=== PATIENT | male | born 1965 | race Hispanic/Latino ===

== ENCOUNTER 2019-08-29 11:09 | Emergency (ER) | payer OTHER, SELFPAY ==
[2019-08-29 11:23] VITALS: BP 139/87; PULSE 65; RESP 16; TEMP 36.4; O2SAT 99
--- NOTE | 2019-08-29 11:35 | ED.EYEPROB ---
HPI - Eye Problem General Chief complaint: Eye Problems Stated complaint: Something in right eye Time Seen by Provider: 08/29/19 11:24 Source: patient and RN notes reviewed Mode of arrival: ambulatory Limitations: no limitations History of Present Illness HPI Narrative: Patient presents today complaining of possible foreign body to the right eye x2 days. He believes it may be a piece of metal or sandpaper as he was grinding at home prior to sensation starting. He does report some blurred vision in the right eye as well as some photophobia. He has tried to flush with water without success. He currently rates his pain 3/10 and has taken no medication for pain prior to arrival. MD chief complaint: foreign body Related Data Home Medications Medication Instructions Recorded Confirmed pravastatin 80 mg PO DAILY 08/29/19 08/29/19 Allergies Allergy/AdvReac Type Severity Reaction Status Date / Time No Known Allergies Allergy Unverified 08/29/19 11:15 Review of Systems Review of Systems: Narrative: CONSTITUTIONAL: Denies body aches, fever, chills, or sweats. EYES: Right eye blurred vision, photophobia, foreign body sensation ENT: Denies rhinorrhea, congestion, sore throat, or otalgia. CARDIOVASCULAR: Denies chest pain, palpitations, or edema. RESPIRATORY: Denies cough or dyspnea. GASTROINTESTINAL: Denies abdominal pain, nausea, vomiting, or diarrhea. GENITOURINARY: Denies dysuria or hematuria. SKIN: Denies rash, itching, or wounds. MUSCULOSKELETAL: Denies back pain, joint pain, or myalgia. NEUROLOGIC: Denies headache, numbness, tingling, or weakness. PSYCH: Denies depression or anxiety. [facility] Past Medical History Medical History (Updated 08/29/19 @ 11:43 by Liz Ndiaye, [facility], ) Hypercholesterolemia Social History Social History Smoking status: Never smoker Alcohol intake: never Comments At time of signature, I have reviewed and agree with nursing past medical, surgical, social and family history unless otherwise noted. Please see nursing chart for further information. There is no relevant family history pertinent to the presenting complaint Exam Narrative: Exam Narrative: GENERAL: Well-appearing, well-nourished, and in no acute distress. HEAD: Normocephalic, atraumatic. EYES: EOMI. PERRL. Conjunctivae normal. Redness to right eye. Lids and lashes normal. +fluorescein uptake. See procedure note. ENT: Mucous membranes pink and moist. NECK: Normal AROM. CHEST: No respiratory distress. EXTREMITIES: Normal range of motion. No edema. SKIN: Warm, dry, no rash. Capillary refill normal. Normal skin turgor. NEURO: No focal deficits. Alert and oriented x3. Gait steady. PSYCH: Normal affect. No signs of depression or anxiety. Course Vital Signs Vital signs: Vital Signs Temperature 97.5 F L 08/29/19 11:23 Pulse Rate 65 08/29/19 11:23 Respiratory Rate 16 08/29/19 11:23 Blood Pressure 139/87 08/29/19 11:23 Pulse Oximetry 99 08/29/19 11:23 Temperature 97.5 F L 08/29/19 11:23 Pulse Rate 65 08/29/19 11:23 Respiratory Rate 16 08/29/19 11:23 Blood Pressure 139/87 08/29/19 11:23 Pulse Oximetry 99 08/29/19 11:23 Reviewed. Pt has been instructed to follow up with his PCP regarding his elevated blood pressure today. Procedures Other Procedure Procedure 1: Other Procedure: Right eye was anesthetized with 1 drop of tetracaine and anesthesia was achieved. The eye was flushed with eye wash. Lid was inverted and examined. Moistened Qtip was used to sweep underneath the upper eyelid with 0 foreign bodies resulting. Cornea was dyed with fluorescein and 1 punctate abrasions was noted. The uptake was so small that if there is a foreign body in the center, it is too small to be detected, even with magnification at [facility]. Pt tolerated procedure well. MDM - Eye Problem Differential Diagnosis Differential diagnosis: Likely corneal abrasion, conjunctivi
== END 2019-08-29 11:42 | disposition home or self-care (01) ==
PROVIDERS: Emergency Provider Nurse Practitioner
DX: S05.01XA Injury of conjunctiva and corneal abrasion without foreign body, right eye, initial encounter (principal); W22.8XXA Striking against or struck by other objects, initial encounter
CPT/HCPCS: 65205; 99213; A9270; G0463

== ENCOUNTER 2019-10-12 08:39 | Emergency (ER) | payer OTHER, SELFPAY ==
--- NOTE | ~2019-10-12 | XR_ITS ---
EXAMINATION: XR foot LT min 3V EXAM DATE: 10/12/2019 09:01 INDICATION: No known recent injury provided at this time. Pain of the left foot. Symptoms for one ye ar. TECHNIQUE: Left foot dorsoplantar, lateral and oblique projections obtained and reviewed. There is n o prior study for comparison. FINDINGS: Left metatarsal bones unremarkable, no evidence of stress fracture. There are no bony er osions identified. Joint spaces are uniform. There are no acute fractures or dislocations identified. There is no subcutaneous gas. The soft tissue is unremarkable. There are no radiopaque foreign b odies. IMPRESSION: 1. Unremarkable left foot exam. Reviewed, dictated and finalized at location B.
--- NOTE | 2019-10-12 08:51 | ED.GENADULT ---
HPI - General Adult General Chief complaint: Extremity Injury, Lower Stated complaint: left foot pain Time Seen by Provider: 10/12/19 08:51 Source: patient Mode of arrival: ambulatory Limitations: no limitations History of Present Illness HPI narrative: 54-year-old male patient presents to the [facility] with complaints of left heel and foot pain x1 year. Patient denies any injuries that he is aware of. Patient states that he has noticed he has had some flareups of swelling to the left heel and the medial aspect of the left foot at times. Denies wrapping it, denies elevating it, denies taking anything for the pain. Patient states he did see his doctor at one point in time for this and was prescribed an x-ray but never got the x-ray. Patient states he presents today because the pain is increasing. Related Data Allergies Allergy/AdvReac Type Severity Reaction Status Date / Time No Known Allergies Allergy Unverified 08/29/19 11:15 Review of Systems Review of Systems: Narrative: CONSTITUTIONAL: Denies fever, chills, or sweats. EYES: Denies visual changes, redness, or discharge. ENT: Denies rhinorrhea, congestion, sore throat, or otalgia. CARDIOVASCULAR: Denies chest pain, palpitations, or edema. RESPIRATORY: Denies cough or dyspnea. GASTROINTESTINAL: Denies abdominal pain, nausea, vomiting, or diarrhea. GENITOURINARY: Denies dysuria or hematuria. SKIN: Denies rash or itching. MUSCULOSKELETAL: Denies back pain, joint pain, or myalgia. Positive left foot pain NEUROLOGIC: Denies headache, numbness, or weakness. PSYCHIATRIC: Denies anxiety or depression. [facility] Past Medical History Medical History Hypercholesterolemia Social History Social History Smoking status: Never smoker Alcohol intake: never Comments At the time of my signature I agree with nursing past medical history, surgical, social, and family history. There is no relevant family history pertinent to the presenting complaint. Exam Narrative: Exam Narrative: GENERAL: Well-appearing, well-nourished, and in no acute distress. HEAD: Normocephalic, atraumatic. EYES: PERRLA and EOMI. ENT: Nares clear, no rhinorrhea or epistaxis. Mucous membranes moist. NECK: Supple. No lymphadenopathy CHEST: Clear to auscultation. No respiratory distress. HEART: Regular rate and rhythm. No murmur heard. Normal peripheral pulses. ABDOMEN: Soft, nontender, nondistended, normal active bowel sounds. EXTREMITIES: Patient able to bear weight and ambulate without pain. No surface trauma, ecchymosis, erythema, lesions, ulcers or break in skin integrity. The L foot is without obvious asymmetry or deformity when compared to the R foot. No bony step-off, nontender to palpation over the toes, midfoot or hindfoot or sole. Patient does have some slight swelling noted to the medial aspect of the heel on the left foot. Normal plantar/dorsiflexion, inversion/eversion. Distal motor and neurovascular status are intact. SKIN: Warm, dry, no rash. NEURO: No focal deficits. Alert and oriented x3. Course Reevaluation(s) Reevaluation #1: Reevaluated patient after x-ray had resulted. Discussed with him that the x-ray is negative for any acute fractures or heel spurs. Discussed with them that I would encourage patient to continue using Santiago wrap to help with swelling and pain as well as elevation, trying to rest and taking Tylenol and ibuprofen as needed for pain. Highly recommend inserts for his shoes. Patient is aware the plan of care. A copy of the x-ray report was provided to the patient and discussed with him that if he continues to have issues with swelling and pain in the feet he will need to see his primary doctor. Date: 10/12/19 Time: 09:18 Vital Signs Vital signs: Vital Signs Temperature 36.5 C 10/12/19 08:52 Pulse Rate 60 10/12/19 08:52 Respiratory Rate 16 10/12/19 08:52 Bloo
[2019-10-12 08:52] VITALS: BP 131/86; PULSE 60; RESP 16; TEMP 36.5; O2SAT 99
== END 2019-10-12 09:24 | disposition home or self-care (01) ==
PROVIDERS: Emergency Provider Nurse Practitioner Family; PCP Registered Nurse
DX: M79.672 Pain in left foot (principal); R22.42 Localized swelling, mass and lump, left lower limb; E78.00 Pure hypercholesterolemia, unspecified; G89.29 Other chronic pain
CPT/HCPCS: 73630; 99213; G0463

== ENCOUNTER 2020-09-12 12:42 | Emergency (ER) | payer OTHER, SELFPAY ==
--- NOTE | 2020-09-12 12:48 | ED.GENADULT ---
HPI - General Adult General Chief complaint: Eye Problems Stated complaint: Eye Pain Source: patient Mode of arrival: ambulatory Limitations: no limitations History of Present Illness HPI narrative: 55 y/o male. PMH includes: HLD. Presents to [facility] today with acute complaints of bilateral eye 'itching', lacrimation, and redness for the past 1 week. Client reports to have initially noticed his eye manifestations to have began after fishing. No visual pain, changes, or loss. He does not wear prescriptive lenses. No additional acute complaints of illness has been identified. Related Data Allergies Allergy/AdvReac Type Severity Reaction Status Date / Time No Known Allergies Allergy Unverified 08/29/19 11:15 Review of Systems Review of Systems: Narrative: CONSTITUTIONAL: Denies fever, chills, sweats. EYES: Denies visual changes. Positive redness, itching, and discharge. ENT: Denies rhinorrhea, congestion, sore throat, otalgia. CARDIOVASCULAR: Denies chest pain, palpitations, edema. RESPIRATORY: Denies dyspnea, wheezing, cough GASTROINTESTINAL: Denies abdominal pain, nausea, vomiting, diarrhea. GENITOURINARY: Denies dysuria, hematuria, abnormal discharge SKIN: Denies rash or itching. MUSCULOSKELETAL: Denies acute back pain, joint pain, or myalgia. NEUROLOGIC: Denies numbness, or focal weakness. PSYCHIATRIC: Denies anxiety or depression. All systems reviewed & are unremarkable except as noted in HPI and below PMFSH Past Medical History Medical History (Updated 09/12/20 @ 12:55 by BE Rosales) Hypercholesterolemia Social History Social History Smoking status: Never smoker Alcohol intake: never Exam Narrative: Exam Narrative: GENERAL: This is a well-nourished, well-developed patient, in no apparent distress. HEAD: normocephalic, atraumatic. EYES: With bilateral conjunctival erythema and lower lid crustation, RT > burdensome than LT. PERRL. EOM intact. No visual deficits. EARS: External ears normal, auditory canals clear and without drainage, TMs normal without perforation. Hearing grossly intact. NOSE: External nose normal with no obvious nasal discharge, nares without redness, no rhinorrhea. THROAT: Mucous membranes moist, posterior pharynx clear. NECK: Neck supple, non-tender without lymphadenopathy, masses or thyromegaly. CARDIOVASCULAR: Regular rate and rhythm without murmurs, gallops, or rubs. RESPIRATORY: Clear to auscultation. Breath sounds equal bilaterally. No wheezes, rales, or rhonchi. GASTROINTESTINAL: Abdomen soft, non-tender, nondistended. Bowel sounds are active. No hepato-splenomegaly, or palpable masses. No guarding. SKIN: warm, intact with no suspicious lesions or rash, good texture and turgor. NEURO: awake, alert, and oriented to person, place and time. There were no obvious focal neurologic abnormalities. Steady gait Course Vital Signs Vital signs: Vital Signs Temperature 36.5 C 09/12/20 12:56 Pulse Rate 73 09/12/20 12:56 Respiratory Rate 16 09/12/20 12:56 Blood Pressure 125/78 09/12/20 12:56 Pulse Oximetry 99 09/12/20 12:56 Temperature 36.5 C 09/12/20 12:56 Pulse Rate 73 09/12/20 12:56 Respiratory Rate 16 09/12/20 12:56 Blood Pressure 125/78 09/12/20 12:56 Pulse Oximetry 99 09/12/20 12:56 Medical Decision Making Differential Diagnosis Differential Diagnosis: Differential Diagnosis: Consideration of the following conditions may be warranted for the presenting problem, they are not final diagnoses: Adult Blepharitis, Allergic Conjunctivitis, Chemical Donis, Contact Lens Complications, Dry eyes, Epidemic Keratoconjunctivitis, Episcleritis, Acute Angle-Closure Glaucoma. Vital Signs Vital Signs: Vital Signs Temperature 36.5 C 09/12/20 12:56 Pulse Rate 73 09/12/20 12:56 Respiratory Rate 16 09/12/20 12:56 Blood Pressure 125/78 09/12/20 12:56 Pulse Oximetry 99 09/12/
[2020-09-12 12:56] VITALS: BP 125/78; PULSE 73; RESP 16; TEMP 36.5; O2SAT 99
== END 2020-09-12 13:03 | disposition home or self-care (01) ==
PROVIDERS: Emergency Provider Nurse Practitioner Adult Health
DX: H10.33 Unspecified acute conjunctivitis, bilateral (principal); E78.00 Pure hypercholesterolemia, unspecified
CPT/HCPCS: 99213; G0463

== ENCOUNTER 2020-12-07 10:41 | Emergency (ER) | payer OTHER, SELFPAY ==
[2020-12-07 10:57] VITALS: BP 133/94; PULSE 101; RESP 16; TEMP 38.4; O2SAT 98
--- NOTE | 2020-12-07 11:23 | ED.GENADULT ---
HPI - General Adult General Chief complaint: Upper Respiratory Infection Stated complaint: headache Source: patient Mode of arrival: ambulatory Limitations: no limitations History of Present Illness HPI narrative: Patient is a 55-year-old male who presents to the [facility] via POV for evaluation of Covid-like symptoms that have been present for approximately 3 days. Additionally, he reports generalized headache, subjective fever, dry cough, and rhinorrhea. Denies taking OTC meds for symptoms. Nothing improves or worsen symptoms. He is accompanied by his who is also here to be seen for similar symptoms. Denies known exposure to sick contacts. He is not vaccinated against Covid. Related Data Home Medications Medication Instructions Recorded Confirmed atorvastatin 80 mg PO DAILY 12/07/20 12/07/20 Allergies Allergy/AdvReac Type Severity Reaction Status Date / Time No Known Allergies Allergy Unverified 08/29/19 11:15 Review of Systems Review of Systems: Denies chills, sweats, change in appetite, recent weight loss, LOC, dizziness, sinus problems, sneezing, ear problems, sore throat, swollen lymph nodes, wheezing, cyanosis, shortness of breath, abdominal pain, nausea, vomiting, diarrhea, chest pain, and heart palpitations PMFSH Past Medical History Medical History (Updated 12/07/20 @ 11:53 by TWILA Soliman, ) Hypercholesterolemia Hyperlipidemia Social History Social History Smoking status: Never smoker Alcohol intake: never Gender identity (if verbalized by the patient): Male Comments I have reviewed and agree with the patient's past medical, surgical, social, and family hx as documented by the RN. There is no relevant family history pertinent to the presenting complaint. Exam Narrative: GENERAL: Well-appearing, well-nourished, and in no acute distress. HEAD: Normocephalic, atraumatic. No sinus tenderness or facial swelling appreciated. EYES: PERRLA and EOMI. No evidence of erythema, swelling, or drainage. ENT: Bilateral external ears and ear canals normal. Bilateral TMs are normal.No TM perforation. Nares clear, no rhinorrhea or epistaxis. Bilateral turbinates without erythema/ swelling. Mucous membranes moist and pink. Uvula is midline without erythema and swelling. No evidence of petechial rash, cobblestoning, lesions, ulcers, erythema, swelling, exudates, peritonsillar abscess, tenting, or drooling. Breath odor and voice normal. NECK: Supple. No Lymphadenopathy or nuchal rigidity appreciated. CHEST: Bilateral lung telles are clear to auscultation. No respiratory distress. NO pleuritic cp upon examination. Mild dry cough appreciated on examination. HEART: Regular rate and rhythm. No murmur, gallop, or rub heard. EXTREMITIES: Normal range of motion. No edema. SKIN: Warm, dry, no rash. NEURO: No focal deficits. Alert and oriented x3. Course Vital Signs Vital signs: Vital Signs Temperature 101.1 F H 12/07/20 10:57 Pulse Rate 101 H 12/07/20 10:57 Respiratory Rate 16 12/07/20 10:57 Blood Pressure 133/94 H 12/07/20 10:57 Pulse Oximetry 98 12/07/20 10:57 Temperature 101.1 F H 12/07/20 10:57 Pulse Rate 101 H 12/07/20 10:57 Respiratory Rate 16 12/07/20 10:57 Blood Pressure 133/94 H 12/07/20 10:57 Pulse Oximetry 98 12/07/20 10:57 Medical Decision Making Differential Diagnosis Differential Diagnosis: Allergic rhinitis, ABRS, acute viral sinusitis, strep pharyngitis, nasopharyngitis, bronchitis, pneumonia, AOM, otitis externa, viral URI, influenza, COVID-19 Medical Records Medical records reviewed: Yes I reviewed the external patient's medical records. Vital Signs Vital Signs: Vital Signs Temperature 101.1 F H 12/07/20 10:57 Pulse Rate 101 H 12/07/20 10:57 Respiratory Rate 16 12/07/20 10:57 Blood Pressure 133/94 H 12/07/20 10:57 Pulse Oximetry 98 12/07/20 10:57
== END 2020-12-07 11:50 | disposition home or self-care (01) ==
PROVIDERS: Emergency Provider Nurse Practitioner Family; PCP Registered Nurse
DX: U07.1 COVID-19 (principal); E78.00 Pure hypercholesterolemia, unspecified; E78.5 Hyperlipidemia, unspecified
CPT/HCPCS: 87426; 99213; C9803; G0463

== ENCOUNTER 2021-12-03 19:32 | Emergency (ER) | payer OTHER, SELFPAY ==
[2021-12-03 19:42] VITALS: BP 122/79; PULSE 97; RESP 16; TEMP 37.8; O2SAT 99
--- NOTE | 2021-12-03 20:39 | ED.EAR ---
HPI - Ear Problem General Chief complaint: Ear Stated complaint: Ear Pain Time Seen by Provider: 12/03/21 20:39 Source: patient Mode of arrival: ambulatory Limitations: no limitations History of Present Illness HPI Narrative: 56-year-old male presents with complaint of left ear pain since yesterday. Today he reports that he has sore throat, nasal congestion, headache, fatigue and felt like he had a fever this morning. He continues to have left ear pain. He is refusing a COVID test. States he wants to focus on left ear pain. All systems reviewed and negative except as noted above. Related Data Home Medications Medication Instructions Recorded Confirmed atorvastatin 80 mg tablet 80 mg PO DAILY 12/07/20 12/03/21 Allergies Allergy/AdvReac Type Severity Reaction Status Date / Time No Known Allergies Allergy Verified 12/03/21 20:12 Review of Systems Review of Systems: CONSTITUTIONAL: Reports fever, chills, or sweats. EYES: Denies visual changes, redness, or discharge. ENT: Reports rhinorrhea, congestion, sore throat and left ear pain CARDIOVASCULAR: Denies chest pain, palpitations, or edema. RESPIRATORY: Denies cough or dyspnea. GASTROINTESTINAL: Denies abdominal pain, nausea, vomiting, or diarrhea. GENITOURINARY: Denies dysuria or hematuria. SKIN: Denies rash or itching. MUSCULOSKELETAL: Denies back pain, joint pain, or myalgia. NEUROLOGIC: Denies headache, numbness, or weakness. PSYCHIATRIC: Denies anxiety or depression. All other systems reviewed are negative, except as documented in HPI. [facility] Past Medical History Medical History (Updated 12/03/21 @ 20:45 by Nisa Wiseman NP) Hypercholesterolemia Hyperlipidemia Social History Social History Smoking status: Never smoker Alcohol intake: never Gender identity (if verbalized by the patient): Male Comments At time of signature, agree with nursing past medical, surgical, social and family history. There is no relevant family history pertinent to the presenting complaint. Exam Narrative: GENERAL: This is a well-nourished, well-developed patient, in no apparent distress. HEAD: normocephalic, atraumatic. EYES: PERRL. Sclera clear/white. Vision is grossly intact. EARS: External ears normal, auditory canals clear and without drainage, left TM is erythematous and retracted. Right TM is normal. NOSE: External nose normal with clear nasal drainage, mild congestion, erythema to both nares. THROAT: Mucous membranes moist, mild erythema to posterior pharynx. NECK: Neck supple, non-tender without lymphadenopathy, masses or thyromegaly. CARDIOVASCULAR: Regular rate and rhythm without murmurs, gallops, or rubs. RESPIRATORY: Clear to auscultation. Breath sounds equal bilaterally. No wheezes, rales, or rhonchi. SKIN: warm, Dry, intact with no suspicious lesions or rash, good texture and turgor. NEURO: awake, alert, and oriented to person, place and time. There were no obvious focal neurologic abnormalities. EXTREMITIES: No joint tenderness, effusion, or edema noted. Course Course Level of Care: Express Care Visit Vital Signs Vital signs: Vital Signs Temperature 37.8 C H 12/03/21 19:42 Pulse Rate 97 12/03/21 19:42 Respiratory Rate 16 12/03/21 19:42 Blood Pressure 122/79 12/03/21 19:42 Pulse Oximetry 99 12/03/21 19:42 Oxygen Delivery Room Air 12/03/21 19:42 Temperature 37.8 C H 12/03/21 19:42 Pulse Rate 97 12/03/21 19:42 Respiratory Rate 16 12/03/21 19:42 Blood Pressure 122/79 12/03/21 19:42 Pulse Oximetry 99 12/03/21 19:42 Oxygen Delivery Room Air 12/03/21 19:42 Reviewed Medical Decision Making MDM Narrative Medical decision making narrative: Patient is aware of diagnosis, understands and agrees to treatment plan. Anticipatory guidance given. Patient agrees to follow-up as directed and is aware of reasons to seek care at the emergency departme
== END 2021-12-03 20:50 | disposition home or self-care (01) ==
PROVIDERS: Emergency Provider Nurse Practitioner Family; PCP Registered Nurse
DX: H66.92 Otitis media, unspecified, left ear (principal); R09.82 Postnasal drip; E78.00 Pure hypercholesterolemia, unspecified; E78.5 Hyperlipidemia, unspecified
CPT/HCPCS: 99213; G0463

== ENCOUNTER 2022-01-27 17:57 | Emergency (ER) | payer OTHER, SELFPAY ==
[2022-01-27] VITALS (20 sets, daily range): BP systolic 137–151; BP diastolic 75–98; PULSE 58–78; RESP 14–26; O2SAT 92–99
--- NOTE | ~2022-01-27 | XR_ITS ---
EXAMINATION: XR chest 2V Exam Date/Time: 01/27/2022 18:40 CDT HISTORY: L SIDED CP RADIATES TO BACK X 3 DAYS, HIGH CHOLESTEROL Comparison: None available. RESULT: Lines, tubes, and devices: None. Lungs and pleura: Low volumes with crowding. Streaky opacities in the lung bases likely representing atelectasis. Cardiomediastinal silhouette: Stable. Other: No acute osseous or upper abdominal finding. H shaped vertebral bodies as can be seen with sickle cell anemia. Mild anterior wedge deformity of vertebral bodies at the thoracolumbar junction, likely physiologic. IMPRESSION: No acute cardiopulmonary process. Reviewed, dictated and finalized at location K.
--- NOTE | 2022-01-27 18:26 | ECG_ITS ---
Measurements Intervals [place] Rate: 63 P: 49 [place]: 226 QRS: -5 QRSD: 97 T: 15 QT: 368 QTc: 379 Interpretive Statements SINUS RHYTHM WITH FIRST DEGREE AV BLOCK NO PREVIOUS ECG AVAILABLE FOR COMPARISON Electronically Signed On 01-28-2022 11:34:50 CDT by Mark Clark M.D.
[2022-01-27 18:33] LABS: Basophils Percent Auto 0.4 % (0.2-1.2); Eosinophils Absolute Auto 0.2 K/mm3 (0-0.3); Eosinophils Percent Auto 2.3 % (0-4.4); Hematocrit 45.3 % (42.0-52.0); Hemoglobin 15.4 g/dL (14.0-18.0); Immature Granulocyte Absolute 0.02 K/mm3 (0.00-0.031); Immature Granulocyte Percent A 0.3 % (0-0.5); Lymphocytes Absolute Auto 3.16 K/mm3 (0.9-3.2); Lymphocytes Percent Auto 45.8 % (18.3-44.2); Mean Corpuscular Hemoglobin 30.5 pg (26-34); Mean Corpuscular Volume 89.7 fl (80-100); Mean Platelet Volume 10.8 fl (7.4-10.4); Monocytes Absolute Auto 0.6 K/mm3 (0.1-0.6); Monocytes Percent Auto 8.1 % (2.6-8.5); Neutrophils Percent Auto 43.1 % (45.5-73.1); Platelet Count Result 201 k/mm3 (150-375); Red Blood Count 5.05 M/mm3 (4.6-6.20); Red Cell Distribution Width 14.2 % (11.5-14.5); White Blood Count 6.9 K/mm3 (4.5-10.0)
[2022-01-27 18:43] LABS: Prothrombin Time 12.7 Seconds (11.1-14.7)
[2022-01-27 18:44] LABS: Alanine Aminotransferase 39 U/L (6-50); Albumin Level 4.1 g/dL (3.5-5.1); Alkaline Phosphatase 124 U/L (38-126); Anion Gap 11 mmol/L (8-16); Aspartate Amino Transferase 38 U/L (17-59); Bilirubin,Total 0.4 mg/dL (0.2-1.3); Blood Urea Nitrogen 14 mg/dL (9-20); Carbon Dioxide 27 mmol/L (22-30); Chloride 103 mmol/L (98-107); Estimated CRCL calculation 97 ml/min; Estimated Glomerular Filt Rate > 60; Glucose 91 mg/dL (65-110); Lipase 96 U/L (23-300); Partial Thromboplastin Time 28.7 SECONDS (22.3-36.8); Potassium 3.6 mmol/L (3.4-5.0); Sodium 141 mmol/L (137-145)
[2022-01-27 18:55] LABS: Troponin I < 0.012 ng/mL (0.000-0.034)
--- NOTE | 2022-01-27 19:13 | PC.NURSE ---
Report received from LUIZA Garrison. Assumed care of patient at this time.
--- NOTE | 2022-01-27 19:26 | ED.CHESTPAIN ---
HPI - Chest Pain General Chief Complaint: Chest Pain Stated Complaint: chest pain x 3 days Time Seen by Provider: 01/27/22 18:01 Source: patient and RN notes reviewed Mode of arrival: ambulatory Limitations: language barrier (bengali speaking) History of Present Illness HPI narrative: This is a 56 year old male who presents for evaluation of left chest pain. Patient reports intermittent left chest pain. He noticed pain to left lateral chest 3 nights ago. He denies his pain has cramping and nonradiating. He woke up the next morning without any pain. He states tonight he felt this pain when he was working with his bow and arrow. His pain seems worse with movement. He reports intermittent dry cough for 2 weeks. Denies sob, nausea, vomiting, fever, chills, abdominal pain, leg swelling . He has not taken any medication for his pain. His pain is rated 2/10. Related Data Home Medications Medication Instructions Recorded Confirmed atorvastatin 80 mg tablet 80 mg PO DAILY 01/27/22 Allergies Allergy/AdvReac Type Severity Reaction Status Date / Time No Known Allergies Allergy Verified 01/27/22 18:14 Review of Systems Review of Systems: All systems reviewed & are unremarkable except as noted in HPI and below Constitutional: Constitutional: Denies chills, Denies fatigue and Denies fever(s) ENT: Denies nasal congestion Cardiovascular: Cardiovascular: Reports chest pain, Denies rapid heart rate, Denies radiating jaw, neck or arm pain and Denies slow heart rate Respiratory: Respiratory: Denies chest congestion, Denies cough and Denies dyspnea Gastrointestinal: Gastrointestinal: Denies abdominal pain, Denies nausea and Denies vomiting PMFSH Past Medical History Medical History (Updated 01/27/22 @ 22:00 by Elvia Carreno MD) Hypercholesterolemia Hyperlipidemia Social History Social History Smoking status: Never smoker Alcohol intake: never Gender identity (if verbalized by the patient): Male Exam Const: General: healthy appearing and alert Nutritional Appearance: well nourished Orientation/consciousness: patient oriented x3 Limitations: no limitations HENMT: Head: normal to inspection Eyes: EOM: EOMs intact bilaterally Neck: Neck: normal visual inspection Chest: Chest palpation & inspection: normal inspection of the chest Resp: Effort & Inspection: normal respiratory effort Auscultation: clear to auscultation bilaterally Cardio: Rate: regular rate Rhythm: regular rhythm Heart sounds: no murmurs GI: GI Palp: Yes Soft to palpation, No Tenderness to palpation present (GI) and No Guarding due to palpation present (GI) Auscultation: normal bowel sounds Back/Spine/Pelvis: Back: no CVA tenderness Skin: General skin exam: normal color Rashes: no rashes Wounds: no wounds Neuro: General: patient oriented x3, moves all extremities and CN's II-XI intact bilaterally Cranial nerves: Yes Nystagmus not present Extrem: General: normal to inspection Psych: Mental Status: mental status grossly normal Affect: normal affect Attitude: cooperative Course Reevaluation(s) Reevaluation #1: Patient states he does not have chest pain. He also states now he thinks it may be due to Zetia that he is taking. Pain is atypical and non exertional so he will be discharged for outpatient follow up . Date: 01/27/22 Time: 21:58 Vital Signs Vital signs: Vital Signs Pulse Rate 64 01/27/22 18:08 Respiratory Rate 16 01/27/22 18:08 Blood Pressure 151/80 H 01/27/22 18:08 Pulse Oximetry 98 01/27/22 18:08 Oxygen Delivery Room Air 01/27/22 18:08 Pulse Rate 76 01/27/22 21:46 Respiratory Rate 26 H 01/27/22 21:46 Blood Pressure 144/98 H 01/27/22 21:01 Pulse Oximetry 97 01/27/22 21:46 Oxygen Delivery Room Air 01/27/22 18:08 MDM - Chest Pain Lab Data Attestation: I reviewed the patient's lab results. Result d
[2022-01-27 21:47] LABS: Troponin I < 0.012 ng/mL (0.000-0.034)
== END 2022-01-27 22:25 | disposition home or self-care (01) ==
PROVIDERS: Emergency Provider General Practice; PCP Registered Nurse
DX: R07.89 Other chest pain (principal); E78.5 Hyperlipidemia, unspecified; I44.0 Atrioventricular block, first degree
CPT/HCPCS: 36415; 71046; 80053; 83690; 84484; 85025; 85610; 85730; 93005; 99284

== ENCOUNTER 2023-03-24 14:27 | Outpatient (CLI) | payer OTHER, SELFPAY ==
--- NOTE | 2023-03-24 | ECG_ITS ---
Measurements Intervals [place] Rate: 65 P: 55 ND: 207 QRS: 4 QRSD: 98 T: 17 QT: 380 QTc: 397 Interpretive Statements SINUS RHYTHM ABNORMAL ELECTROCARDIOGRAM COMPARED TO ECG 01/27/2022 18:10:23 NO SIGNIFICANT CHANGES Electronically Signed On 03-24-2023 15:30:54 SUPERVISOR DRYING by Anthony Taylor M.D.
--- NOTE | ~2023-03-24 | XR_ITS ---
EXAMINATION: XR chest 2V 03/24/2023 14:49 INDICATION: Atypical chest pain PROCEDURE: 2 view chest COMPARISON: 01/27/2022 FINDINGS: The lungs are clear. The cardiomediastinal silhouette is within normal limits. There are no pleural effusions. There is no pneumothorax suspected. IMPRESSION: 1: NO ACUTE CARDIOPULMONARY DISEASE. Reviewed, dictated and finalized at location B. ELLA FRAME MAKER
== END 2023-03-24 14:28 | disposition home or self-care (01) ==
PROVIDERS: PCP Registered Nurse; Visit Provider Registered Nurse
DX: R07.89 Other chest pain (principal); R94.31 Abnormal electrocardiogram [ECG] [EKG]
CPT/HCPCS: 71046; 93005

== ENCOUNTER 2023-05-31 11:52 | Emergency (ER) | payer OTHER, SELFPAY ==
--- NOTE | ~2023-05-31 | CT_ITS ---
CT of the Abdomen and Pelvis: Indication: Abdominal pain Technique: 2.5 mm axial scans were obtained through the abdomen and pelvis following intravenous adm inistration of 100 cc of Omnipaque 350. Dose reduction technique was used on this scan by utilizing a utomated exposure control and iterative reconstruction technique. The dose-length product (DLP) was 9 27.41 mGy-cm. Findings: Scans through the lung bases are unremarkable. There is diffuse fatty infiltration of the liver. The spleen, pancreas, gallbladder, adrenals and kid neys are within normal limits. No evidence of aortic aneurysm. No lymphadenopathy. No bowel obstruction or bowel wall thickening. There is no evidence to suggest acute appendicitis. Images through the pelvis were performed. Urinary bladder unremarkable. No pelvic mass seen. No ascit es. Bilateral fat-containing inguinal hernias noted. Impression: No acute abnormalities seen. Diffuse fatty infiltration of liver. Bilateral fat-containing inguinal hernias. Reviewed, dictated and finalized at [facility]. H MOVER Impression: No acute abnormalities seen. Diffuse fatty infiltration of liver. Bilateral fat-containing inguinal hernias.
[2023-05-31 11:59] VITALS: BP 126/74; PULSE 90; RESP 16; TEMP 36.6; O2SAT 100
[2023-05-31 13:14] VITALS: BP 131/88; PULSE 77; RESP 20; O2SAT 96
--- NOTE | 2023-05-31 13:23 | ECG_ITS ---
Measurements Intervals [place] Rate: 67 P: 48 WA: 220 QRS: 3 QRSD: 101 T: 34 QT: 374 QTc: 397 Interpretive Statements SINUS RHYTHM WITH FIRST DEGREE AV BLOCK ABNORMAL ECG COMPARED TO ECG 03/24/2023 14:58:24 FIRST DEGREE AV BLOCK NOW PRESENT Electronically Signed On 06-01-2023 8:16:14 BUTANE COMPRESSOR OPERATOR by Omar Lucero M.D.
[2023-05-31] MEDS: FAMOTIDINE 20 MG/2 ML VIAL IV PUSH (13:36)
[2023-05-31] MEDS: SODIUM CHLORIDE 0.9% IV 1,000 ML 999 ML IV CONT (13:36)
[2023-05-31 13:39] LABS: Basophils Percent Auto 0.5 % (0.2-1.2); Eosinophils Absolute Auto 0.1 K/mm3 (0-0.3); Hematocrit 46.2 % (42.0-52.0); Hemoglobin 15.4 g/dL (14.0-18.0); Immature Granulocyte Absolute 0.02 K/mm3 (0.00-0.031); Immature Granulocyte Percent A 0.3 % (0-0.5); Lymphocytes Absolute Auto 2.64 K/mm3 (0.9-3.2); Lymphocytes Percent Auto 40.3 % (18.3-44.2); Mean Corpuscular HGB Conc 33.3 g/dl (32-36); Mean Corpuscular Hemoglobin 30.4 pg (26-34); Mean Corpuscular Volume 91.3 fl (80-100); Mean Platelet Volume 10.4 fl (7.4-10.4); Monocytes Absolute Auto 0.5 K/mm3 (0.1-0.6); Monocytes Percent Auto 7.3 % (2.6-8.5); Neutrophils Absolute Auto 3.3 K/mm3 (1.3-6.7); Neutrophils Percent Auto 49.6 % (45.5-73.1); Platelet Count Result 229 k/mm3 (150-375); Red Blood Count 5.06 M/mm3 (4.6-6.20); Red Cell Distribution Width 13.9 % (11.5-14.5); White Blood Count 6.6 K/mm3 (4.5-10.0)
[2023-05-31 13:51] LABS: Lactic Acid Reflex 1.4 mmol/L (0.7-2.0)
[2023-05-31 13:53] LABS: Prothrombin Time 13.4 Seconds (11.1-14.7)
[2023-05-31 13:54] LABS: Alanine Aminotransferase 43 U/L (6-50); Alkaline Phosphatase 108 U/L (38-126); Anion Gap 6 mmol/L (8-16); Aspartate Amino Transferase 48 U/L (17-59); Bilirubin,Total 0.7 mg/dL (0.2-1.3); Blood Urea Nitrogen 14 mg/dL (9-20); CRP < 0.5 mg/dL (<1.0); Calcium 9.1 mg/dL (8.4-10.2); Carbon Dioxide 25 mmol/L (22-30); Chloride 108 mmol/L (98-107); Estimated CRCL calculation 117 ml/min; Estimated Glomerular Filt Rate > 60; Glucose 156 mg/dL (65-110); Lipase 163 U/L (23-300); Potassium 4.1 mmol/L (3.4-5.0); Sodium 139 mmol/L (137-145)
--- NOTE | 2023-05-31 13:58 | ED.ABDPAIN ---
HPI - Abdominal Pain General Chief Complaint: Abdominal Pain Stated Complaint: abd pain Time Seen by Provider: 05/31/23 13:18 Source: patient Limitations: no limitations History of Present Illness HPI narrative: Patient is a 58-year-old male presents to the emergency department accompanied by family for abdominal pain. Patient states that in his lower abdomen diffusely he has a sensation of hot lack of fever and is uncomfortable and is experiencing this for the past 3 days it has been coming and going, no history this in the past, has not tried anything for the pain has not noticed anything making the pain better or worse, denies radiation of the discomfort. Patient also admits to associated discomfort when he has a bowel movement and feels like he can not feel something stopping his typical use of having a bowel movement the patient denies any melena or hematochezia. Patient denies history of Gastroenterology evaluation. Patient denies recent injuries, recent illness, chest pain, difficulty breathing, rash, fever, cough, nausea, vomiting, urinary discomfort, history kidney stones, urinary frequency, urinary urgency, hematuria, numbness, weakness. Related Data Home Medications Medication Instructions Recorded Confirmed atorvastatin 80 mg tablet 80 mg PO DAILY 01/27/22 Allergies Allergy/AdvReac Type Severity Reaction Status Date / Time No Known Allergies Allergy Verified 05/31/23 13:16 Review of Systems Review of Systems: A 10 system review of systems was completed on the patient and is negative except for what is stated in the HPI. Nursing and ancillary documentation was reviewed. [facility] Past Medical History Medical History (Updated 05/31/23 @ 17:13 by Casper Howe DO) Hypercholesterolemia Hyperlipidemia Social History Social History Smoking status: Never smoker Alcohol intake: never Gender identity (if verbalized by the patient): Male Comments At time of signature, I have reviewed and agree with nursing past medical, surgical, social and family history unless otherwise noted. Please see the nursing chart for further information. There is no relevant family history pertinent to the presenting complaint. Exam Narrative: CONST: No acute distress. Well nourished. HENMT: Head is normocephalic and atraumatic. Moist mucous membranes. No posterior oropharynx erythema. EYES: No conjunctival icterus, injection, or pallor. PERRL. NECK: No meningeal signs. RESP: Able to speak in full sentences. Normal respiratory effort. CTAB. CARDIO: Regular rate. Regular rhythm. 2+ DP and radial pulses bilaterally. GI: Nondistended. No tenderness to palpation. Soft. Negative Pool sign. No McBurney's point tenderness to palpation. No palpable masses or hernias. : No CVA tenderness to palpation. external examination of the anus reveals no fissures or hemorrhoids, anal tone is normal in digital rectal examination, no gross blood, no palpable masses or internal hemorrhoids, stool Hemoccult is negative. No testicular pain or swelling. SKIN: No rashes or lesions noted on exposed skin. NEURO: Oriented x3. Moves all extremities. EXTREM/MSK/BACK: No pedal edema. PSYCH: Normal affect. Procedures Stool Hemoccult Stool hemoccult #1: Stool Hemoccult Date: 05/31/23 Stool Hemoccult Time: 14:48 Procedural Steps Taken: stool placed in appropriate test area, developer placed on stool and control areas and controls appropriately positive and negative Hemoccult result: negative Course Vital Signs Vital signs: Vital Signs Temperature 97.9 F 05/31/23 11:59 Pulse Rate 90 05/31/23 11:59 Respiratory Rate 16 05/31/23 11:59 Blood Pressure 126/74 05/31/23 11:59 Pulse Oximetry 100 05/31/23 11:59 Oxygen Delivery Room Air 05/31/23 11:59 Temperature 97.9 F 05/31/23 11:59 Pulse Rate 73 05/31/23 14:4
[2023-05-31 14:01] LABS: Troponin I < 0.012 ng/mL (0.000-0.034)
[2023-05-31 14:19] LABS: Influenza A QL RT-PCR Negative (Negative); Influenza B QL RT-PCR Negative (Negative); RSV RNA, RT-PCR Negative (Negative); SARS-CoV-2 RNA PCR Negative (Negative)
[2023-05-31 14:21] LABS: Appearance Urine Clear (Clear); Bilirubin Urine Negative (Negative); Blood Urine Negative (Negative); Color Urine Yellow (Yellow); Glucose Urine UA Negative (Negative); Ketones Urine Negative (Negative); Leukocyte Esterase Ur Negative LEU/UL (Negative); Nitrate Urine Negative (Negative); Protein Urine Negative (Negative); Specific Grav Ur 1.024 (1.001-1.035)
[2023-05-31 14:25] LABS: Add Urine Microscopic? NO
[2023-05-31 14:41] VITALS: PULSE 73; RESP 19; O2SAT 99
[2023-05-31] MEDS: ACETAMINOPHEN 500 MG TABLET 1000 MG PO (14:57)
[2023-05-31 17:23] VITALS: BP 148/87; PULSE 60; RESP 20; TEMP 36.6; O2SAT 99
== END 2023-05-31 17:25 | disposition home or self-care (01) ==
PROVIDERS: Emergency Provider Student in an Organized Health Care Education/Training Program; PCP Registered Nurse
DX: R10.30 Lower abdominal pain, unspecified (principal); E78.5 Hyperlipidemia, unspecified; Z20.822 Contact with and (suspected) exposure to COVID-19
CPT/HCPCS: 36415; 74177; 80053; 81003; 83605; 83690; 83735; 84484; 85025; 85610; 85730; 86140; 87637; 93005; 96361; 96374; 99284; A9270; J7030; Q9967

== ENCOUNTER 2023-10-30 11:24 | Emergency (ER) | payer OTHER, SELFPAY ==
--- NOTE | ~2023-10-30 | XR_ITS ---
PA, oblique, and lateral views of the left third finger CLINICAL HISTORY: Crush injury FINDINGS: No acute fracture or dislocation seen. Joint spaces are intact. Soft tissues are unremarkab le. IMPRESSION: Unremarkable exam. Reviewed, dictated and finalized at location M. IMPRESSION: Unremarkable exam.
[2023-10-30 11:25] VITALS: BP 138/86; PULSE 77; RESP 16; TEMP 36.6; O2SAT 97
--- NOTE | 2023-10-30 12:26 | ED.UPPEXIN ---
HPI - Extremity Injury (Upper) General Chief Complaint: Extremity Injury, Upper Stated Complaint: finger injury Time Seen by Provider: 10/30/23 11:26 History of Present Illness HPI narrative: 58-year-old male presents emergency room for evaluation of left middle finger injury. Patient states that he crushed his finger in a car door his prior to arrival. States noticed lacerations to either side of his finger. Related Data Home Medications Medication Instructions Recorded Confirmed atorvastatin 80 mg tablet 80 mg PO DAILY 01/27/22 Allergies Allergy/AdvReac Type Severity Reaction Status Date / Time No Known Allergies Allergy Verified 10/30/23 11:27 Review of Systems Review of Systems: ROS unremarkable except for noted in HPI PMFSH Past Medical History Medical History Hypercholesterolemia Hyperlipidemia Social History Social History Smoking status: Never smoker Alcohol intake: never Gender identity (if verbalized by the patient): Male Exam Narrative: GENERAL: Well-appearing, well-nourished, no physical limitations, and in no acute distress. HEAD: Normocephalic, atraumatic. EYES: Conjunctivae normal, PERRLA and EOMI. CHEST: Clear to auscultation. No respiratory distress. No wheezes rales or rhonchi. HEART: Regular rate and rhythm. No murmur heard. Normal peripheral pulses. EXTREMITIES: Left middle finger: 3.5 cm linear laceration to medial side, 0.5 cm laceration to lateral side SKIN: Warm, dry, no rash. No noted wounds NEURO: No focal deficits. Alert and oriented x3. MAEW. CN's II-XI intact bilaterally, normal gait PSYCH: Cooperative. Normal mood and affect. Course Vital Signs Vital signs: Vital Signs Temperature 36.6 C 10/30/23 11:25 Pulse Rate 77 10/30/23 11:25 Respiratory Rate 16 10/30/23 11:25 Blood Pressure 138/86 10/30/23 11:25 Pulse Oximetry 97 10/30/23 11:25 Oxygen Delivery Room Air 10/30/23 11:25 Temperature 36.6 C 10/30/23 11:25 Pulse Rate 64 10/30/23 12:53 Respiratory Rate 16 10/30/23 12:53 Blood Pressure 138/86 07/11/24 11:25 Pulse Oximetry 95 10/30/23 12:53 Oxygen Delivery Room Air 10/30/23 11:25 Procedures Laceration Laceration 1: Date: 10/30/23 Time: 13:32 Site: hand Side (If applicable): left Size (cm): 3.5 Description: linear Depth: simple, single layer Local Anesthetic: lidocaine 1% Amount of anesthesia used (mL): 7 Pre-repair: irrigated ====== Skin Level ====== Skin layer closed with: nylon Size (cm): 5-0 Number of sutures: 7 Technique: simple, interrupted ====== Subcutaneous Layer ====== ====== Muscle Layer ====== ====== Tendon Layer ====== Discharge Plan Discharge Clinical Impression: Finger laceration Patient Disposition: Home, Self-Care Condition: Stable Instructions: Antibiotic Form, Care For Your Stitches (ED), Laceration (ED) Additional Instructions: Keep your wound clean and dry. Do not use as purple alcohol or hydrogen peroxide. Keep wound clean with soap and water. Stitches come out in 10 days. Monitor for signs of infection which include redness, swelling, tenderness and purulent discharge. Prescriptions: No Action atorvastatin 80 mg Tablet 80 mg PO DAILY acetaminophen 500 mg tablet 500 mg PO Q6H PRN (Reason: pain) Qty: 30 0RF Follow-up/Referrals: Brie,KARTHIK Garcia [Primary Care Provider] - Time of Disposition: 13:33
[2023-10-30] MEDS: HYDROmorphone HCL INJ (*CRX) 1 MG/ML SYR IV PUSH (12:51)
[2023-10-30 12:53] VITALS: PULSE 64; RESP 16; O2SAT 95
[2023-10-30] MEDS: TETANUS,DIPHTHERIA,AC PERTUSSIS ADULT (0.5 ML) BOOSTRIX IM (14:01)
[2023-10-30 14:16] VITALS: BP 126/77; PULSE 57; RESP 16; O2SAT 93
== END 2023-10-30 14:18 | disposition home or self-care (01) ==
PROVIDERS: Emergency Provider Nurse Practitioner Family; PCP Registered Nurse
DX: S61.213A Laceration without foreign body of left middle finger without damage to nail, initial encounter (principal); Z23 Encounter for immunization; E78.00 Pure hypercholesterolemia, unspecified; W23.0XXA Caught, crushed, jammed, or pinched between moving objects, initial encounter
CPT/HCPCS: 12002; 73140; 90471; 90715; 96374; 99284; J1170

== ENCOUNTER 2023-11-19 10:45 | Emergency (ER) | payer OTHER, SELFPAY ==
[2023-11-19 10:59] VITALS: BP 113/69; PULSE 78; RESP 16; TEMP 36.6; O2SAT 98
--- NOTE | 2023-11-19 11:31 | ED.GENADULT ---
HPI - General Adult General Chief complaint: Eye Problems Stated complaint: right eye swollen, red Source: patient Mode of arrival: ambulatory Limitations: no limitations History of Present Illness HPI narrative: Patient presents for evaluation of right upper eyelid swelling and redness for the last 3 days. He denies any pain, pruritus, fever, chills, nausea, vomiting. No visual disturbance. He has not tried any therapies to assist with the symptoms. He does not wear glasses contacts. Related Data Home Medications Medication Instructions Recorded Confirmed atorvastatin 80 mg tablet 80 mg PO DAILY 01/27/22 11/19/23 fluticasone propionate 50 See Rx Instructions .Route .COMPLEX 11/19/23 11/19/23 mcg/actuation nasal spray,suspension loratadine 10 mg tablet 10 mg PO DAILY 11/19/23 11/19/23 Allergies Allergy/AdvReac Type Severity Reaction Status Date / Time No Known Allergies Allergy Verified 11/19/23 10:48 Review of Systems Review of Systems: CONSTITUTIONAL: Denies fever, chills, or sweats. EYES: Denies visual changes, redness, or discharge. ENT: Denies rhinorrhea, congestion, sore throat, or otalgia. CARDIOVASCULAR: Denies chest pain, palpitations, or edema. RESPIRATORY: Denies cough or dyspnea. GASTROINTESTINAL: Denies abdominal pain, nausea, vomiting, or diarrhea. GENITOURINARY: Denies dysuria or hematuria. SKIN: Reports swelling and redness to the right upper eyelid MUSCULOSKELETAL: Denies back pain, joint pain, or myalgia. NEUROLOGIC: Denies headache, numbness, dizziness, or weakness. PSYCHIATRIC: Denies anxiety or depression. [facility] Past Medical History Medical History Hypercholesterolemia Hyperlipidemia Surgical History Surgical History No pertinent past surgical history Family History Family History Mother Family history non-contributory Social History Social History Smoking status: Never smoker Alcohol intake: never Substance use: never Gender identity (if verbalized by the patient): Male Spiritual care concerns: No Exam Narrative: GENERAL: Well-appearing, well-nourished, and in no acute distress. HEAD: Normocephalic, atraumatic. EYES: PERRLA and EOMI. ENT: Nares clear, no rhinorrhea or epistaxis. Mucous membranes moist. Oropharynx without tonsillar hypertrophy exudate or other lesions. Bilateral TMs pearly waddell nonbulging NECK: Supple. No adenopathy or masses. No carotid bruits or JVD CHEST: Clear to auscultation. No respiratory distress. No wheezes rales or rhonchi HEART: Regular rate and rhythm. No murmur heard. Normal peripheral pulses. ABDOMEN: Soft, nontender, nondistended, normal active bowel sounds. EXTREMITIES: Normal range of motion. No edema. SKIN: there is trace swelling and mild erythema noted to the right upper eyelid. NEURO: No focal deficits. Alert and oriented x3. PSYCH: Normal mood and affect. Course Course Emergency Course: This is a 58-year-old male who presented for evaluation of redness and swelling to the right upper eyelid. Exam is consistent with allergic reaction verses or hordeolum. This does not appear to be a periorbital cellulitis. Will treat with Benadryl and erythromycin. Follow up with primary provider. Go to the ER for worsening symptoms. Patient in agreement with plan of care Level of Care: Express Care Visit Vital Signs Vital signs: Vital Signs Temperature 36.6 C 11/19/23 10:59 Pulse Rate 78 11/19/23 10:59 Respiratory Rate 16 11/19/23 10:59 Blood Pressure 113/69 11/19/23 10:59 Pulse Oximetry 98 11/19/23 10:59 Oxygen Delivery Room Air 11/19/23 10:59 Temperature 36.6 C 11/19/23 10:59 Pulse Rate 78 11/19/23 10:59 Respiratory Rate 16 07
== END 2023-11-19 11:20 | disposition home or self-care (01) ==
PROVIDERS: Emergency Provider Nurse Practitioner; PCP Registered Nurse
DX: H02.841 Edema of right upper eyelid (principal); E78.00 Pure hypercholesterolemia, unspecified; E78.5 Hyperlipidemia, unspecified
CPT/HCPCS: 99213; G0463

== ENCOUNTER 2024-02-03 14:08 | Emergency (ER) | payer OTHER, SELFPAY ==
[2024-02-03 14:19] VITALS: BP 116/76; PULSE 83; RESP 17; TEMP 36.7; O2SAT 96
--- NOTE | 2024-02-03 14:37 | ED.EYEPROB ---
HPI - Eye Problem General Chief complaint: Eye Problems Stated complaint: Left Eye Irritation Time Seen by Provider: 02/03/24 14:54 Source: patient, RN notes reviewed and old records reviewed Mode of arrival: ambulatory Limitations: no limitations History of Present Illness HPI Narrative: patient presents with complaints of left eye pain and irritation. He reports that something got into his eye at work. He now has excessive tearing, sensitivity to light. He denies any visual disturbance. Denies other injury and trauma. No other complaints today Related Data Home Medications Medication Instructions Recorded Confirmed atorvastatin 80 mg tablet 80 mg PO DAILY 01/27/22 11/19/23 fluticasone propionate 50 See Rx Instructions .Route .COMPLEX 11/19/23 11/19/23 mcg/actuation nasal spray,suspension loratadine 10 mg tablet 10 mg PO DAILY 11/19/23 11/19/23 Allergies Allergy/AdvReac Type Severity Reaction Status Date / Time No Known Allergies Allergy Verified 11/19/23 10:48 Review of Systems Review of Systems: All systems reviewed & are unremarkable except as noted in HPI and below Constitutional: Constitutional: Reports no additional constitutional complaints Eyes: Eyes: Reports as per HPI, Reports irritation, Denies loss of vision, Denies other visual disturbances, Reports eye pain and Denies requires corrective lenses ENT: Reports system reviewed and no additional complaints, except as documented Cardiovascular: Cardiovascular: Reports no additional cardiovascular complaints Respiratory: Respiratory: Reports no additional respiratory complaints Gastrointestinal: Gastrointestinal: Reports no additional gastrointestinal complaints [facility] Past Medical History Medical History Hypercholesterolemia Hyperlipidemia Surgical History Surgical History No pertinent past surgical history Family History Family History Mother Family history non-contributory Social History Social History Smoking status: Never smoker Alcohol intake: never Substance use: never Gender identity (if verbalized by the patient): Male Spiritual care concerns: No Comments At the time of my signature, I reviewed and agree with the nursing past medical, surgical, social, and family history. There is no relevant family history pertinent to the patient complaint. Exam Const: General: cooperative, no acute distress, alert and awake Orientation/consciousness: oriented to person, oriented to place and oriented to time HENMT: Head: normal to inspection Eyes: Alignment and Position: alignment normal and position normal Sclera: scleral abnormality left scleral injection Cornea: corneas abnormal on the left fluorescein used and abrasion punctate and at the following clock position (6) Pupils: Equal, round and reactive pupils present Resp: Effort & Inspection: normal respiratory effort and able to speak in complete sentences Auscultation: clear to auscultation bilaterally, no crackles, no rales, no rhonchi and no wheezes Cardio: Palpation: normal PMI Rate: regular rate Rhythm: regular rhythm Heart sounds: S1 normal heart sound present and S2 normal heart sound present Neuro: General: oriented to person, oriented to place and oriented to time Cranial nerves: Yes CN's II-XII intact bilaterally Psych: Appearance: grossly normal Thought process: Normal thought process present Insight: Good insight present (Psych) Judgement: Good judgement present (Psych) Course Course Level of Care: Express Care Visit Vital Signs Vital signs: Vital Signs Temperature 98.1 F 02/03/24 14:19 Pulse Rate 83 02/03/24 14:19 Respiratory Rate 17 02/03/24 14:19 Blood Pressure 116/76 02/03/24 14
[2024-02-03] MEDS: DACRIOSE EYE IRRIGATION 118 ML BOTTLE AFFCTD EYE (14:44)
[2024-02-03] MEDS: FLUORESCEIN SOD 1 MG/STRIP AFFCTD EYE (14:44)
[2024-02-03] MEDS: TETRACAINE HCL 0.5% OPHTH SOLN 4 ML BTL AFFCTD EYE (14:44)
== END 2024-02-03 15:15 | disposition home or self-care (01) ==
PROVIDERS: Emergency Provider Nurse Practitioner Family; PCP Registered Nurse
DX: S05.02XA Injury of conjunctiva and corneal abrasion without foreign body, left eye, initial encounter (principal); X58.XXXA Exposure to other specified factors, initial encounter; E78.00 Pure hypercholesterolemia, unspecified; E78.5 Hyperlipidemia, unspecified
CPT/HCPCS: 99213; A9270; G0463

== ENCOUNTER 2024-09-20 13:10 | Emergency (ER) | payer OTHER, SELFPAY ==
--- NOTE | 2024-09-20 13:11 | ED_ITS ---
HPI - Ear Problem General Chief complaint: Ear Stated complaint: Ears Irritation Time Seen by Provider: 09/20/24 13:11 Source: patient Mode of arrival: ambulatory Limitations: no limitations History of Present Illness HPI Narrative: Patrick is a 59-year-old male patient presenting to the clinic today with complaints of runny nose, bilateral ear congestion, dizziness, and a insect bite to the right side of his face. He reports his symptoms have been going on for last 3 days. Insect bite is itchy red and raised. Denies any pain, fevers, chills, body aches. Feels unsteady when he walks Related Data Home Medications ?Medication ?Instructions ?Recorded ?Confirmed ?Last Taken ?Type atorvastatin 80 mg tablet 80 mg PO DAILY 01/27/22 11/19/23 Unknown History metformin 500 mg tablet,extended mg PO 09/20/24 Unknown History release 24 hr Allergies Allergy/AdvReac Type Severity Reaction Status Date / Time No Known Allergies Allergy Verified 09/20/24 13:29 Review of Systems Review of Systems: Pertinent positives per HPI. Patient denies any fever, chills, rash, headache, visual changes, shortness of breath, chest pain, palpitations, nausea, vomiting, diarrhea, constipation, abdominal pain, or any urinary issues. PMFSH Past Medical History Medical History Hypercholesterolemia Hyperlipidemia Surgical History Surgical History No pertinent past surgical history Family History Family History Mother Family history non-contributory Social History Social History Smoking status: Never smoker Alcohol intake: never Substance use: never Gender identity (if verbalized by the patient): Male Spiritual care concerns: No Comments At the time of my signature, I reviewed and agree with the nursing past medical, surgical, social, and family history. There is no relevant family history pertinent to the patient complaint. Exam Narrative: General: Well-developed, well nourished, in no apparent distress Head: Normocephalic, atraumatic Eyes: Pupils equally round and reactive to light bilaterally, EOM intact, sclera and conjunctive clear, no discharge, lids normal Ears: TMs intact and clear, ear canals clear, no drainage, grossly hearing normal. Nose: Nares patent, no discharge, no inflammation, no sinus tenderness. Mouth: Oropharynx without lesions or masses, good dentition, MMM. Tongue midline, even rise and fall of uvula Neck: Supple, trachea midline, no enlargement of anterior or posterior cervical nodes, no thyroid masses or goiter palpable. Cardio: Regular rate and rhythm, s1 and s2 normal, no murmur appreciated. Resp: Clear to auscultation bilaterally anteriorly and posteriorly, no rhonchi, rales, wheezing or rubs Musculoskeletal: No deformity, non-tender to palpation, grossly normal range of motion, muscle strength strong and equal, peripheral pulse strong, no edema, no cyanosis, normal gait and station Neuro: Alert and oriented x4 with normal speech, no focal deficits, cranial nerves I through XII intact, muscle strength 5 out of 5, sensation intact bilaterally Integumentary: [place], warm, and dry, red raised indurated insect bite to the right cheek measuring approximately 1.5 by 1 cm Course Course Emergency Course: Portions of this record may have been created with voice recognition software. Level of Care: Express Care Visit Vital Signs Vital signs: Vital Signs Temperature 36.6 C 09/20/24 13:20 Pulse Rate 80 09/20/24 13:20 Respiratory Rate 16 09/20/24 13:20 Blood Pressure 120/73 09/20/24 13:20 Pulse Oximetry 98 09/20/24 13:20 Oxygen Delivery Room Air 09/20/24 13:20 Temperature 36.6 C 09/20/24 13:20 Pulse Rate 80 09/20/24 13:20 Respiratory Rate 16 09/20/24 13:20 Blood Pressure 120/73 09/20/24 13:20 Pulse Oximetry 98 09/20/24 13:20 Oxygen Delivery Room Air 09/20/24 13:20 Vital signs reviewed Medical Decision Making MDM Narrative Medical decision making narrative: At the time of visit patient is resting comfortably on the exam table. Patient appears to be nontoxic. Labs: COVID testing was negative in the clinic today Plan: I suspect patient has URI/vertigo/insect bite. Neuro exam was normal in the clinic today. Prescription for meclizine, prednisone, and triamcinolone cream. Supportive measures were discussed with the patient and they voiced understanding discharge instructions and agrees to treatment plan. Return precautions reviewed Differential Diagnosis Differential Diagnosis: Otitis media, otitis sternum eustachian tube dysfunction, cerumen impaction, upper respiratory infection, vertigo, BPPV insect bite, cellulitis, eczema Vital Signs Vital Signs: Vital Signs Temperature 36.6 C 09/20/24 13:20 Pulse Rate 80 09/20/24 13:20 Respiratory Rate 16 09/20/24 13:20 Blood Pressure 120/73 09/20/24 13:20 Pulse Oximetry 98 09/20/24 13:20 Oxygen Delivery Room Air 09/20/24 13:20 Temperature 36.6 C 09/20/24 13:20 Pulse Rate 80 09/20/24 13:20 Respiratory Rate 16 09/20/24 13:20 Blood Pressure 120/73 09/20/24 13:20 Pulse Oximetry 98 09/20/24 13:20 Oxygen Delivery Room Air 09/20/24 13:20 Lab Data Labs: Lab Results 09/20/24 Range/Units 13:25 POC SARS CoV-2 Ag Negative (Negative) Discharge Plan Discharge Clinical Impression: Vertigo URI (upper respiratory infection) Qualifiers: URI type: unspecified URI Qualified Code(s): J06.9 - Acute upper respiratory infection, unspecified Insect bite Qualifiers: Encounter type: initial encounter Site of insect bite: head Site of insect bite of head: other part Qualified Code(s): S00.86XA - Insect bite (nonvenomous) of other part of head, initial encounter Patient Disposition: Home Condition: Stable Instructions: Antibiotic Form, Insect Bite or Sting (ED), Vertigo (ED), Cold Symptoms (ED), General Allergic Reaction (ED) Additional Instructions: COVID testing is negative in the clinic today. Take prescription medications only as prescribed-prednisone, meclizine, and triamcinolone cream Increase fluids and stay well hydrated Tylenol/motrin for pain/fever Flonase and OTC antihistamines as directed Vicks vapor rub to open sinuses Sinus rinses for congestion Cepacol spray, cough drops, throat lozenges, warm tea with honey/lemon, gargle salt water to soothe throat BRAT diet for diarrhea Clear liquids x 24 hours then advance as tolerated for nausea/vomiting Go to the ED if you develop a worsening in your condition- high fever not controlled by Tylenol or Motrin, dehydration, weakness, lethargy, shortness of breath, or chest pain. Follow up with your PCP in 3-5 days if symptoms persist. La prueba de COVID-19 en la cl?ganesh elijah negativo hoy. [place] valencia medicamentos recetados solo seg?n lo prescrito: prednisona, meclizina y crema de triamcinolona. Aumente la ingesta de l?quidos y mant?ngase daisy hidratado. Tylenol/Motrin para el dolor y la fiebre. Flonase y antihistam?nicos de venta delfino seg?n las indicaciones. Vicks vapor rub para despejar los senos paranasales. Enjuagues nasales para la congesti?n. Cepacol en aerosol, pastillas para la tos, pastillas para la garganta, t? caliente con miel y rodarte?n, g?rgaras con agua salada para aliviar la garganta. Dieta BRAT para la diarrea. L?quidos judah cada 24 horas y luego aumente la dosis seg?n la tolerancia para las n?useas y los v?mitos. Dir?lupillo a urgencias si rizvi condici?n empeora: fiebre ayaka que no se controla con Tylenol o Motrin, deshidrataci?n, debilidad, letargo, dificultad para respirar o dolor en el pecho. Consulte con rizvi m?dico de cabecera en 3 a 5 d?as si los s?ntomas persisten. Patient Language: Bruneian Prescriptions: New prednisone 20 mg tablet 40 mg PO DAILY 5 Days Qty: 10 0RF triamcinolone acetonide 0.1 % cream 1 applic topical BID 7 Days Qty: 30 0RF meclizine 25 mg tablet 25 mg PO TID PRN (Reason: dizziness) 7 Days Qty: 21 0RF No Action metformin 500 mg tablet extended release 24 hr PO atorvastatin 80 mg Tablet 80 mg PO DAILY Follow-up/Referrals: Brie,KARTHIK Garcia [Primary Care Provider] - Time of Disposition: 13:46 Quality NIHSS Nursing Documentation ED NIHSS nursing documentation: reviewed/agree
[2024-09-20 13:20] VITALS: BP 120/73; PULSE 80; RESP 16; TEMP 36.6; O2SAT 98
[2024-09-20 13:45] LABS: EDCOVIDSCREEN Negative (Negative)
== END 2024-09-20 13:55 | disposition home or self-care (01) ==
PROVIDERS: Emergency Provider Nurse Practitioner Family; PCP Registered Nurse
DX: R42 Dizziness and giddiness (principal); S00.86XA Insect bite (nonvenomous) of other part of head, initial encounter; W57.XXXA Bitten or stung by nonvenomous insect and other nonvenomous arthropods, initial encounter; Z20.822 Contact with and (suspected) exposure to COVID-19; E78.5 Hyperlipidemia, unspecified; E78.00 Pure hypercholesterolemia, unspecified
CPT/HCPCS: 87426; 99213; G0463

== ENCOUNTER 2024-11-11 11:09 | Emergency (ER) | payer OTHER, SELFPAY ==
--- NOTE | 2024-11-11 11:14 | ED_ITS ---
HPI - URI/Sore Throat General Chief Complaint: Upper Respiratory Infection Stated Complaint: Sinus Time Seen by Provider: 11/11/24 11:10 Source: patient Mode of arrival: ambulatory Limitations: no limitations History of Present Illness HPI Narrative: Patient is a 59-year-old male that presents with over 1 week of sinus congestion, pressure. Patient has not taken anything for symptoms. Denies any fever, chills, nausea vomiting, diarrhea. Reports symptoms are worse at night. Denies any sore throat, cough. Related Data Home Medications ?Medication ?Instructions ?Recorded ?Confirmed ?Last Taken ?Type atorvastatin 80 mg tablet 80 mg PO DAILY 01/27/22 11/19/23 Unknown History metformin 500 mg tablet,extended 500 mg PO 09/20/24 Unknown History release 24 hr Allergies Allergy/AdvReac Type Severity Reaction Status Date / Time No Known Allergies Allergy Verified 11/11/24 11:13 Review of Systems Review of Systems: All systems reviewed & are unremarkable except as noted in HPI and below Constitutional: Constitutional: Denies chills, Denies fatigue, Denies fever(s), Denies headache(s), Denies malaise and Denies weakness Eyes: Eyes: Denies blurry vision, Denies itchy eyes and Denies loss of vision ENT: Denies otalgia, Denies headache(s), Reports nasal congestion, Reports sinus pain, Reports sinus pressure and Denies sore throat Cardiovascular: Cardiovascular: Denies chest pain, Denies irregular heart rhythm and Denies dyspnea Respiratory: Respiratory: Denies cough and Denies dyspnea Gastrointestinal: Gastrointestinal: Denies abdominal pain, Denies diarrhea, Denies nausea and Denies vomiting Musculoskeletal: Musculoskeletal: Denies back pain, Denies myalgias and Denies arthralgias Integumentary/Breasts: Skin/Breast: Denies pruritus and Denies rash Neurologic: Denies headache(s), Denies loss of vision and Denies weakness Psychiatric: Psychiatric: Reports no additional psychiatric complaints Endocrine: Endocrine: Denies fatigue Allergic/Immunologic: Allergic/Immunologic: Denies itchy eyes PMFSH Past Medical History Medical History Hyperlipidemia Hypercholesterolemia Surgical History Surgical History No pertinent past surgical history Family History Family History Mother Family history non-contributory Social History Social History Smoking status: Never smoker Alcohol intake: never Substance use: never Gender identity (if verbalized by the patient): Male Spiritual care concerns: No Comments At time of signature, agree with nursing past medical, surgical, social and family history. There is no relevant family history pertinent to the presenting complaint. Exam Const: General: cooperative, healthy appearing, comfortable, no acute distress and well nourished Nutritional Appearance: well nourished Orientation/cons ciousness: patient oriented x3 Limitations: no limitations HENMT: Head: normal to inspection, normocephalic and atraumatic Ears: hearing grossly normal bilaterally, external ears normal, TM's normal bilaterally, EAC's normal and no periauricular adenopathy Face/Nose/Sinus: Normal external nose present, Abnormal mucous membranes and turbinates present erythematous bilateral and diffuse, normal facial exam, face symmetric and Facial tenderness on exam of face and sinuses Face and sinus: normal facial exam, face symmetric and sinus tenderness maxillary Mouth: Yes Normal oral and palatal mucosa present, Yes lip normal, Yes tongue normal, Yes Normal salivary glands and ducts present, Yes oropharynx normal and Yes moist mucous membranes Teeth and gingiva: dentition normal Throat: posterior oropharynx normal, tonsils normal and uvula midline Eyes: General: appearance normal, both eyes and all related structures Alignment and Position: alignment normal and position normal Periorbital: periorbital findings normal Eyelids: eyelids normal Pupils: Equal, round and reactive pupils present Neck: Neck: normal visual inspection, full ROM, no lymphadenopathy and supple Chest: Chest palpation & inspection: normal inspection of the chest and normal palpation of entire chest wall Resp: Effort & Inspection: normal respiratory effort and able to speak in complete sentences Auscultation: clear to auscultation bilaterally, no crackles, no rales, no rhonchi and no wheezes Cardio: Rate: regular rate Rhythm: regular rhythm Heart sounds: S1 normal heart sound present and S2 normal heart sound present GI: Inspection: normal to inspection Skin: General skin exam: normal color and no rashes or lesions noted Neuro: General: patient oriented x3 and moves all extremities Cranial nerves: Yes Equal, round and reactive pupils present Speech: normal speech Gait exam (Neuro): Normal gait present Extrem: General: normal to inspection, full ROM and no edema Psych: Appearance: grossly normal and well kempt Mental Status: mental status grossly normal Speech and movement: Normal speech and movement present Affect: normal affect Attitude: cooperative Thought process: Normal thought process present Course Course Emergency Course: Discharge instructions reviewed with patient, as well as provided in writing per nursing staff. The instructions also include specific and strict return/GO TO THE ER as well as f/u information. All questions have been answered, and the patient deny any further questions wit h discharge and discharge plan. Portions of this record may have been created with voice recognition software Level of Care: Express Care Visit Vital Signs Vital signs: Reviewed MDM - URI/Sore Throat MDM Narrative Medical decision making narrative: Pt well hydrated appearing, in no respiratory distress, hemodynamically stable. Recommend supportive care. The patient is stable at time of discharge the clinical impression was discussed and the patient was given the opportunity to ask questions, which were addressed as completely as possible given the information available at present. Anticipatory guidance and return to care precautions were discussed and the importance of primary care follow-up was stressed and encouraged. The patient voiced understanding of the plan, indications to return, and the need for follow-up. Exam findings show no acute concerns or changes Patient is appropriate for outpatient treatment and follow-up. Differential diagnosis considered: [place] virus, strep pharyngitis, allergic rhinitis, upper respiratory tract infection, sinusitis, rhinosinusitis, nasopharyngitis. viral pharyngitis, otitis media, otitis externa, otitis effusion, foreign body, cerumen impaction, viral syndrome, and influenza.? Medical Records Attestation: I reviewed the patient's medical records. Discharge Plan Discharge Clinical Impression: Acute bacterial sinusitis Patient Disposition: Home Condition: Stable Instructions: Sinusitis (ED) Additional Instructions: Symptomatic treatment of a sinus infection aims to relieve symptoms. These treatments do not shorten the duration of illness. Nonprescription pain medications, such as acetaminophen (eg, Tylenol) or ibuprofen (eg, Motrin, Advil), are recommended for pain. Flushing the nose and sinuses with a saline solution several times per day has been proven to decrease pain associated with congestion and shorten the duration of symptoms. Nasal steroids (such as Flonase, 2 sprays in each nostril daily) can help to reduce swelling inside the nose, usually within two to three days. These drugs have few side effects and relieve symptoms in most people. Oral decongestants (pseudoephedrine and phenylephrine) may be helpful if you have associated symptoms of ear pain or fullness. Nasal decongestant sprays, including oxymetazoline (Afrin) and phenylephrine (Ruy-Synephrine), can be used to temporarily treat congestion. However, these sprays should not be used for more than two to three days due to the risk of rebound congestion (when the nose becomes congested constantly unless the medication is used repeatedly), possible addiction, and long-term consequences of frequent use, including persistent nasal dryness and crusting, which is very difficult to treat once it has developed. Medications to thin secretions (such as guaifenesin) may help to clear mucus. Please follow-up with your primary care doctor in the next 1-2 days. If you cannot follow-up with your primary care doctor please go to the ED for any urgent issues. If you have any worsening of symptoms or any other concerns please go to the ED immediately. El tratamiento sintom?robin de vaishali infecci?n sinusal busca aliviar los s?ntomas. Estos tratamientos no acortan la duraci?n de la enfermedad. Se recomiendan analg?sicos de venta delfino, jacqui acetaminof?n (p. ej., Tylenol) o ibuprofeno (p. ej., Motrin, Advil), para el dolor. Se chatterjee demostrado que enjuagar la nariz y los senos paranasales con soluci?n salina varias veces al d?a disminuye el dolor asociado con la congesti?n y acorta la duraci?n de los s?ntomas. Los esteroides nasales (jacqui Flonase, 2 pulverizaciones en cada fosa nasal al d?a) pueden ayudar a reducir la inflamaci?n nasal, generalmente en un plazo de dos a rishi d?as. Estos medicamentos tienen pocos efectos secundarios y alivian los s?ntomas en la mayor?a de las personas. Los descongestionantes orales (pseudoefedrina y fenilefrina) pueden ser ?tiles si presenta s?ntomas asociados de dolor o congesti?n de o?do. Los descongestionantes nasales en aerosol, jacqui la oximetazolina (Afrin) y la fenilefrina (Ruy-Synephrine), pueden utilizarse para tratar temporalmente la congesti?n. Sin embargo, estos aerosoles no deben usarse allison m?s de dos o rishi d?as debido al riesgo de congesti?n nasal de rebote (cuando la nariz se congestiona constantemente a menos que el medicamento se use repetidamente), posible adicci?n y consecuencias a holley plazo del uso frecuente, jacqui sequedad nasal persistente y formaci?n de costras, que son muy dif?ciles de tratar vaishali vez que se matos desarrollado. Los medicamentos para diluir las secreciones (jacqui la guaifenesina) pueden ayudar a eliminar la mucosidad. Consulte con rizvi m?dico de cabecera en los pr?ximos 1 o 2 d?as. Si no puede consultar con rizvi m?dico de cabecera, acuda a urgencias para cualquier problema urgente. Si experimenta un empeoramiento de los s?ntomas o cualquier otra inquietud, acuda a urgencias de inmediato. Patient Language: Iraqi Prescriptions: New fluticasone propionate [Flonase Allergy Relief] 50 mcg/actuation spray,suspension 1 spray intranasal DAILY Qty: 16 0RF Rx Instructions: administer into each nostril loratadine 10 mg tablet 10 mg PO DAILY Qty: 30 0RF amoxicillin-pot clavulanate 875-125 mg tablet 1 tablet PO Q12H 10 Days Qty: 20 0RF No Action metformin 500 mg tablet extended release 24 hr 500 mg PO atorvastatin 80 mg Tablet 80 mg PO DAILY Follow-up/Referrals: Brie,KARTIHK Garcia [Primary Care Provider] - 3 Days Time of Disposition: 11:44
[2024-11-11 11:16] VITALS: BP 114/76; PULSE 71; RESP 16; TEMP 36.6; O2SAT 97
== END 2024-11-11 11:52 | disposition home or self-care (01) ==
PROVIDERS: Emergency Provider Nurse Practitioner Family; PCP Registered Nurse
DX: J01.90 Acute sinusitis, unspecified (principal); E78.00 Pure hypercholesterolemia, unspecified
CPT/HCPCS: 99213; G0463